=== PATIENT | male | born 1990 | race Caucasian/White ===

== ENCOUNTER 2017-05-25 19:55 | Emergency (ER) | payer BC ==
[2017-05-25 21:16] LABS: Hematocrit 46 % (42-52); Hemoglobin 15.6 g/dl (14.0-18.0); Mean Corpuscular HGB Conc 34 g/dl (31-36); Mean Corpuscular Hemoglobin 28 pg (27-31); Mean Corpuscular Volume 83 fL (80-94); Mean Platelet Volume 7 um3 (7.4-10.4); Red Blood Count 5.56 10^6/ul (4.0-5.4); Red Cell Distribution Width 13 % (10.5-15)
[2017-05-25 21:29] LABS: ALT 25 U/L (7-52); AST 17 U/L (13-39); Albumin 4.4 g/dL (3.2-5.2); Alkaline Phosphatase 49 U/L (34-104); Anion Gap 7 mmol/L (2-11); BUN/Creatinine Ratio 13.3 (8-20); Blood Urea Nitrogen 11 mg/dL (6-24); CO2 Carbon Dioxide 26 mmol/L (22-32); Calcium 9.7 mg/dL (8.6-10.3); Chloride 105 mmol/L (101-111); EGFR African American 146.4 (>60); EGFR Non-African American 113.8 (>60); Globulin 2.8 g/dL (2-4); Glucose 123 mg/dL (70-100); Potassium 3.5 mmol/L (3.5-5.0); Sodium 138 mmol/L (133-145); Total Protein 7.2 g/dL (6.4-8.9)
[2017-05-25 21:48] LABS: Acetaminophen < 15 mcg/mL; Alcohol < 10 mg/dL (<10); Salicylate < 2.50 mg/dL (<30)
[2017-05-25 22:02] LABS: TSH (Thyroid Stimulating Horm) 1.57 mcIU/mL (0.34-5.60)
[2017-05-25 22:06] LABS: Urine Bilirubin Negative (Negative); Urine Glucose Negative (Negative); Urine Nitrite Negative (Negative)
[2017-05-25 22:19] LABS: Benzodiazepine Urine Screen None Detected (None Detect)
[2017-05-26] MEDS ORDERED: LORazepam TAB(*) 1 MG PO ONE (00:40)
[2017-05-26] MEDS ORDERED: LORazepam TAB(*) 1 MG ONE (00:41)
--- NOTE | 2017-05-26 06:33 | ED ---
Kirti Huber Thomas, scribed for Jeremie Smith on 05/25/17 at 2054 . Psychiatric Complaint - HPI Summary HPI Summary: The patient is a 26 y/o M with a Hx of schizophrenia c/o auditory hallucinations for the last two years. He presents to the ED requesting electroconvulsive therapy. He says he feels anxious and depressed. He denies SI. He is a current smoker, occasionally uses alcohol, and denies illicit drug use. He is currently on psychotropic medication. He is accompanied by his mother. - History Of Current Complaint Chief Complaint: EDMentalHealth Time Seen by Provider: 05/25/17 20:31 Hx Obtained From: Patient, Family/[employer] Superintendent - mother is present Onset/Duration: Lasting Weeks - auditory hallucinations began two years ago, Still Present Severity Currently: Moderate Character: Depressed, Anxious Aggravating Factor(s): Nothing Alleviating Factor(s): Nothing Associated Signs And Symptoms: Positive: Hallucinating - auditory Related History: Positive For: Prior Psychiatric Issues Has Suicidal: Denies: Thoughts - Allergies/Home Medications Allergies/Adverse Reactions: Allergies Allergy/AdvReac Type Severity Reaction Status Date / Time No Known Allergies Allergy Verified 05/25/17 20:00 Home Medications: Home Medications Paliperidone TAB* [Invega TAB*] 6 mg PO DAILY 05/26/17 [History Confirmed ] hydrOXYzine HCL TAB* [Atarax TAB 50 MG *] 50 mg PO BID 05/26/17 [History Confirmed 05/26/17] PMH/Surg Hx/FS Hx/Imm Hx Previously Healthy: No Cardiovascular History: Denies: Hx Myocardial Infarction Psychiatric History: Reports: Hx Schizophrenia - Surgical History Surgery Procedure, Year, and Place: None Infectious Disease History: No Infectious Disease History: Denies: Traveled Outside the [place] in Last 30 Days - Family History Known Family History: Positive: Other - When asked, patient responds "nothing" - Social History Alcohol Use: Weekly Substance Use Type: Reports: None Smoking Status (MU): Current Every Day Smoker Review of Systems Negative: Fever Positive: Anxious, Depressed, Other - Auditory hallucinations; NEGATIVE: SI All Other Systems Reviewed And Are Negative: Yes Physical Exam - Summary Physical Exam Summary: Appearance: Well appearing, no pain distress Skin: warm, dry, reflects adequate perfusion Head/face: normal Eyes: EOMI, OLIVIA ENT: normal Neck: supple, nontender Respiratory: CTA, breath sounds present Cardiovascular: RRR, pulses symmetrical Abdomen: nontender, soft Bowel: present Musculoskeletal: normal, strength/ROM intact Neuro: normal, sensory motor intact, A&Ox3 PSYCHIATRIC: depressed affect. Triage Information Reviewed: Yes Vital Signs On Initial Exam: Initial Vitals Temp Pulse Resp BP Pulse Ox 99.1 F 130 18 135/91 97 05/25/17 19:57 05/25/17 19:57 05/25/17 19:57 05/25/17 19:57 05/25/17 19:57 Vital Signs Reviewed: Yes - [place] Coma Scale Coma Scale Total: 15 Diagnostics - Vital Signs Vital Signs Temp Pulse Resp BP Pulse Ox 05/25/17 19:57 99.1 F 130 18 135/91 97 - Laboratory Lab Results: Lab Results 05/25/17 05/25/17 05/25/17 Range/Units 21:07 21:07 21:55 WBC 8.0 (3.5-10.8) 10^3/ul RBC 5.56 H (4.0-5.4) 10^6/ul Hgb 15.6 (14.0-18.0) g/dl Hct 46 (42-52) % MCV 83 (80-94) fL MCH 28 (27-31) pg MCHC 34 (31-36) g/dl RDW 13 (10.5-15) % Plt Count 230 (150-450) 10^3/ul MPV 7 L (7.4-10.4) um3 Neut % (Auto) 63.9 (38-83) % Lymph % (Auto) 24.8 L (25-47) % [place] % (Auto) 9.4 H (1-9) % Eos % (Auto) 1.4 (0-6) % Baso % (Auto) 0.5 (0-2) % Absolute Neuts (auto) 5.1 (1.5-7.7) 10^3/ul Absolute Lymphs (auto) 2.0 (1.0-4.8) 10^3/ul Absolute Monos (auto) 0.8 (0-0.8) 10^3/ul Absolute Eos (auto) 0.1 (0-0.6) 10^3/ul Absolute Basos (auto) 0 (0-0.2) 10^3/ul Absolute Nucleated RBC 0.01 10^3/ul Nucleated RBC % 0.1 Sodium 138 (133-145) mmol/L Potassium 3.5 (3.5-5.0) mmol/L Chloride 105 (101-111) mmol/L Carbon Dioxide 26 (22-32) mmol/L Anion Gap 7 (2-11) mmol/L BUN 11 (6-24) mg/dL Creatinine 0.83 (0.67-1.17) mg/dL Est GFR ( Amer) 146.4 (>60) Est GFR (Non-Af Amer) 113.8 (>60) BUN/Creatinine Ratio 13.3 (8-20) Glucose 123 H (70-100) mg/dL Calcium 9.7 (8.6-10.3) mg/dL Total Bilirubin 0.30 (0.2-1.0) mg/dL AST 17 (13-39) U/L ALT 25 (7-52) U/L Alkaline Phosphatase 49 (34-104) U/L Total Protein 7.2 (6.4-8.9) g/dL Albumin 4.4 (3.2-5.2) g/dL Globulin 2.8 (2-4) g/dL Albumin/Globulin Ratio 1.6 (1-3) TSH 1.57 (0.34-5.60) mcIU/mL Urine Color Urine Appearance Urine pH (5-9) Ur Specific [place] (1.010-1.030) Urine Protein (Negative) Urine Ketones (Negative) Urine Blood (Negative) Urine Nitrate (Negative) Urine Bilirubin (Negative) Urine Urobilinogen (Negative) Ur Leukocyte Esterase (Negative) Urine Glucose (Negative) Salicylates < 2.50 (<30) mg/dL Urine Opiates Screen None detected (None Detect) Acetaminophen < 15 mcg/mL Ur Barbiturates Screen None detected (None Detect) Ur Phencyclidine Scrn None detected (None Detect) Ur Amphetamines Screen None detected (None Detect) U Benzodiazepines Scrn None detected (None Detect) Urine Cocaine Screen None detected (None Detect) U Cannabinoids Screen None detected (None Detect) Serum Alcohol < 10 (<10) mg/dL 05/25/17 Range/Units 21:55 WBC (3.5-10.8) 10^3/ul RBC (4.0-5.4) 10^6/ul Hgb (14.0-18.0) g/dl Hct (42-52) % MCV (80-94) fL MCH (27-31) pg MCHC (31-36) g/dl RDW (10.5-15) % Plt Count (150-450) 10^3/ul MPV (7.4-10.4) um3 Neut % (Auto) (38-83) % Lymph % (Auto) (25-47) % [place] % (Auto) (1-9) % Eos % (Auto) (0-6) % Baso % (Auto) (0-2) % Absolute Neuts (auto) (1.5-7.7) 10^3/ul Absolute Lymphs (auto) (1.0-4.8) 10^3/ul Absolute Monos (auto) (0-0.8) 10^3/ul Absolute Eos (auto) (0-0.6) 10^3/ul Absolute Basos (auto) (0-0.2) 10^3/ul Absolute Nucleated RBC 10^3/ul Nucleated RBC % Sodium (133-145) mmol/L Potassium (3.5-5.0) mmol/L Chloride (101-111) mmol/L Carbon Dioxide (22-32) mmol/L Anion Gap (2-11) mmol/L BUN (6-24) mg/dL Creatinine (0.67-1.17) mg/dL Est GFR ( Amer) (>60) Est GFR (Non-Af Amer) (>60) BUN/Creatinine Ratio (8-20) Glucose (70-100) mg/dL Calcium (8.6-10.3) mg/dL Total Bilirubin (0.2-1.0) mg/dL AST (13-39) U/L ALT (7-52) U/L Alkaline Phosphatase (34-104) U/L Total Protein (6.4-8.9) g/dL Albumin (3.2-5.2) g/dL Globulin (2-4) g/dL Albumin/Globulin Ratio (1-3) TSH (0.34-5.60) mcIU/mL Urine Color Yellow Urine Appearance Clear Urine pH 7.0 (5-9) Ur Specific [place] 1.013 (1.010-1.030) Urine Protein Negative (Negative) Urine Ketones Negative (Negative) Urine Blood Negative (Negative) Urine Nitrate Negative (Negative) Urine Bilirubin Negative (Negative) Urine Urobilinogen Negative (Negative) Ur Leukocyte Esterase Negative (Negative) Urine Glucose Negative (Negative) Salicylates (<30) mg/dL Urine Opiates Screen (None Detect) Acetaminophen mcg/mL Ur Barbiturates Screen (None Detect) Ur Phencyclidine Scrn (None Detect) Ur Amphetamines Screen (None Detect) U Benzodiazepines Scrn (None Detect) Urine Cocaine Screen (None Detect) U Cannabinoids Screen (None Detect) Serum Alcohol (<10) mg/dL Result Diagrams: 05/25/17 21:07 05/25/17 21:07 Lab Statement: Any lab studies that have been ordered have been reviewed, and results considered in the medical decision making process. Course/Dx - Course Course Of Treatment: Patient was cleared for mental health evaluation at 21:47. Assessment/Plan: The patient is a 26 y/o M with a Hx of schizophrenia c/o auditory hallucinations for the last two years. In the ED, he was cleared for a mental health examination. After mental health evaluation, he will be signed out to the next ED physician pending further psychiatry recommendations. - Differential Dx/Clinical Impression Differential Diagnosis/HQI/PQRI: Positive: Acute Psychosis, Schizophrenia, Suicidal Ideation Provider Diagnosis: Acute psychosis Discharge - Discharge Plan Condition: Fair Disposition: OTHER Discharge Disposition Comment: Sign out to the next ED physician at shift change awaiting dispo. Referrals: Non Staff,Doctor [Primary Care Provider] - The documentation as recorded by the Kirti torres Thomas accurately reflects the service I personally performed and the decisions made by , Jeremie Smith.
[2017-05-26 09:48] VITALS: BP 128/72
== END 2017-05-26 09:30 ==
LOC: ED 19:55
DX: F23 Brief psychotic disorder (principal); F41.8 Other specified anxiety disorders; R44.0 Auditory hallucinations; F17.210 Nicotine dependence, cigarettes, uncomplicated
CPT/HCPCS: 36415; 80053; 80307; 80320; 80329; 81003; 84443; 85025; 99283; A9270-GY; G0480

== ENCOUNTER 2020-08-23 16:26 | Inpatient (IN) ==
[2020-08-23 18:19] LABS: ABS Basophils 0.1 10^3/ul (0-0.2); ABS Eosinophils 0.1 10^3/ul (0-0.6); ABS Lymphocytes 2.1 10^3/ul (1.0-4.8); ABS Monocytes 0.9 10^3/ul (0-0.8); ABS Neutrophils 9.4 10^3/ul (1.5-7.7); Hematocrit 45 % (42-52); Hemoglobin 15.1 g/dL (14.0-18.0); Lymphocyte % 16.9 %; Mean Corpuscular HGB Conc 34 g/dL (31-36); Mean Corpuscular Hemoglobin 28 pg (27-31); Mean Corpuscular Volume 84 fL (80-94); Mean Platelet Volume 7.1 fL (7.4-10.4); Platelet Count 292 10^3/uL (150-450); Red Blood Count 5.36 10^6 /uL (4.18-5.48); Red Cell Distribution Width 14 % (10-15); White Blood Count 12.6 10^3/uL (3.5-10.8)
[2020-08-23] MEDS ORDERED: Nicotine PATCH 21 MG/24 HR PATCH TRANSDERM ONE (18:33)
[2020-08-23 18:35] LABS: Urine Appearance Clear; Urine Bilirubin Negative (Negative); Urine Blood Negative (Negative); Urine Color Yellow; Urine Glucose Negative (Negative); Urine Ketones Negative (Negative); Urine Nitrite Negative (Negative); Urine Protein Negative (Negative); Urine Specific Gravity 1.004 (1.010-1.030); Urine Urobilinogen Negative (Negative)
[2020-08-23 18:36] LABS: ALT 62 U/L (7-52); AST 33 U/L (13-39); Albumin 4.4 g/dL (3.2-5.2); Albumin/Globulin Ratio 1.6 (1-3); Alkaline Phosphatase 57 U/L (34-104); Anion Gap 9 mmol/L (2-11); BUN/Creatinine Ratio 5.1 (8-20); Blood Urea Nitrogen 4 mg/dL (6-24); CO2 Carbon Dioxide 27 mmol/L (22-32); Calcium 9.4 mg/dL (8.6-10.3); Chloride 101 mmol/L (101-111); EGFR African American 142.4 (>60); EGFR Non-African American 117.7 (>60); Globulin 2.7 g/dL (2-4); Glucose 96 mg/dL (70-100); Potassium 3.8 mmol/L (3.5-5.0); Sodium 137 mmol/L (135-145); Total Protein 7.1 g/dL (6.4-8.9)
[2020-08-23 18:43] LABS: Urine Benzodiazepine Screen None Detected (None Detect); Urine Cannabinoids Screen None Detected (None Detect); Urine Opiates Screen None Detected (None Detect)
[2020-08-23 18:44] LABS: Acetaminophen < 15 mcg/mL; Alcohol, S < 10 mg/dL (<10); Salicylate < 2.50 mg/dL (<30)
[2020-08-23 18:58] LABS: TSH Ultra Thyroid Stim Horm 0.93 mcIU/mL (0.34-5.60)
[2020-08-24] MEDS ORDERED: Al Hydrox/Mg Hydrox/Simet LIQ 30 ML UDC PO PRN (00:15)
[2020-08-24] MEDS: Vitamin THERAPEUTIC TAB PO SCH (08:15)
[2020-08-24] MEDS ORDERED: Nicotine PATCH 14 MG/24 HR PATCH TRANSDERM SCH (09:00)
[2020-08-24] MEDS: Nicotine GUM 2MG FRUIT FLAVOR PO PRN ×2 (11:43→14:12)
[2020-08-24] MEDS: GuaiFENesin DM 100 mg/10 mg in 5 ML UDC PO PRN ×2 (14:50→20:32)
[2020-08-24] MEDS: Nicotine GUM 4MG FRUIT FLAVOR PO PRN ×2 (16:53→21:03)
[2020-08-25] MEDS: GuaiFENesin DM 100 mg/10 mg in 5 ML UDC PO PRN ×2 (00:47→16:42)
[2020-08-25] MEDS: Nicotine GUM 4MG FRUIT FLAVOR PO PRN ×6 (00:47→22:28)
[2020-08-25] MEDS: Vitamin THERAPEUTIC TAB PO SCH (07:47)
[2020-08-25] MEDS: Nicotine PATCH 21 MG/24 HR PATCH TRANSDERM SCH (07:47)
[2020-08-26] MEDS: Nicotine PATCH 21 MG/24 HR PATCH TRANSDERM SCH (08:14)
[2020-08-26] MEDS: Vitamin THERAPEUTIC TAB PO SCH (08:15)
[2020-08-26] MEDS: Nicotine GUM 4MG FRUIT FLAVOR PO PRN ×4 (08:59→17:55)
[2020-08-27] MEDS: Nicotine GUM 4MG FRUIT FLAVOR PO PRN ×2 (04:36→09:50)
[2020-08-27] MEDS: Nicotine PATCH 21 MG/24 HR PATCH TRANSDERM SCH (07:30)
[2020-08-27] MEDS: Vitamin THERAPEUTIC TAB PO SCH (07:31)
[2020-08-27 09:31] VITALS: BP 127/70
[2020-08-30] MEDS ORDERED: Paliperidone SUSTENNA 234 MG/1.5 ML IM ONE (10:00)
== END 2020-08-27 11:10 | disposition home or self-care (01) ==
LOC: ED 16:26 → BSU 22:22
PROVIDERS: ADMIT Psychiatry & Neurology Psychiatry; ATTEND Psychiatry & Neurology Psychiatry

== ENCOUNTER 2021-09-28 10:54 | Inpatient (IN) ==
[2021-09-28 11:59] LABS: Urine Appearance Cloudy; Urine Bilirubin Negative (Negative); Urine Blood Negative (Negative); Urine Color Amber; Urine Glucose Negative (Negative); Urine Ketones Trace (Negative); Urine Nitrite Negative (Negative); Urine Protein Negative (Negative); Urine Specific Gravity 1.024 (1.002-1.030); Urine Urobilinogen Negative (Negative)
[2021-09-28 12:12] LABS: Urine Benzodiazepine Screen None Detected (None Detect); Urine Cannabinoids Screen None Detected (None Detect); Urine Opiates Screen None Detected (None Detect)
[2021-09-28] MEDS: Nicotine GUM 4MG FRUIT FLAVOR PO PRN ×3 (13:37→18:22)
[2021-09-28 17:00] LABS: ABS Basophils 0.1 10^3/ul (0-0.2); ABS Eosinophils 0.1 10^3/ul (0-0.6); ABS Lymphocytes 2.3 10^3/ul (1.0-4.8); ABS Monocytes 0.9 10^3/ul (0-0.8); ABS Neutrophils 6.9 10^3/ul (1.5-7.7); Hematocrit 43 % (42-52); Hemoglobin 14.3 g/dL (14.0-18.0); Lymphocyte % 22.4 %; Mean Corpuscular HGB Conc 34 g/dL (31-36); Mean Corpuscular Hemoglobin 27 pg (27-31); Mean Corpuscular Volume 82 fL (80-94); Mean Platelet Volume 7.3 fL (7.4-10.4); Nucleated Red Blood Cells % 0.1; Platelet Count 282 10^3/uL (150-450); Red Blood Count 5.23 10^6 /uL (4.18-5.48); Red Cell Distribution Width 13 % (10-15); White Blood Count 10.3 10^3/uL (3.5-10.8)
[2021-09-28 17:16] LABS: ALT 23 U/L (7-52); Albumin 4.2 g/dL (3.2-5.2); Albumin/Globulin Ratio 1.8 (1-3); Alkaline Phosphatase 49 U/L (35-149); Blood Urea Nitrogen 12 mg/dL (6-24); CO2 Carbon Dioxide 27 mmol/L (22-32); Calcium 9.2 mg/dL (8.6-10.3); Chloride 101 mmol/L (101-111); Globulin 2.4 g/dL (2-4); Glucose 82 mg/dL (70-100); Sodium 134 mmol/L (135-145); Total Protein 6.6 g/dL (6.4-8.9)
[2021-09-28 17:20] LABS: Anion Gap 6 mmol/L (2-11)
[2021-09-28 17:48] LABS: Acetaminophen < 15 mcg/mL; Alcohol, S < 13 mg/dL (<13); Salicylate < 2.50 mg/dL (<30)
[2021-09-28 18:03] LABS: TSH Ultra Thyroid Stim Horm 1.33 mcIU/mL (0.34-5.60)
[2021-09-28 22:07] LABS: Potassium Redraw 3.5 mmol/L (3.5-5.0)
[2021-09-29] MEDS: Nicotine GUM 4MG FRUIT FLAVOR PO PRN ×7 (01:15→23:51)
[2021-09-29] MEDS: Vitamin THERAPEUTIC TAB PO SCH (07:10)
[2021-09-29] MEDS: Nicotine PATCH 21 MG/24 HR PATCH TRANSDERM SCH (07:11)
[2021-09-29] MEDS ORDERED: Albuterol HFA INHALER 8 gm MDI INH PRN (16:28)
[2021-09-30] MEDS: Vitamin THERAPEUTIC TAB PO SCH (07:41)
[2021-09-30] MEDS: Nicotine PATCH 21 MG/24 HR PATCH TRANSDERM SCH (07:42)
[2021-09-30] MEDS: Nicotine GUM 4MG FRUIT FLAVOR PO PRN ×3 (08:01→15:05)
[2021-09-30 17:17] VITALS: BP 121/77
== END 2021-09-30 17:45 | disposition home or self-care (01) | DRG 750 ==
LOC: ED 10:54 → BSU 17:58
PROVIDERS: ADMIT Psychiatry & Neurology Psychiatry; ATTEND Student in an Organized Health Care Education/Training Program